=== PATIENT | male | born 1980 | race Two or more races ===

== ENCOUNTER 2019-01-22 08:46 | Inpatient (IN) | payer SELFPAY ==
[~2019-01-22] VITALS: Ht 190.5 cm; Wt 100.5 kg
[2019-01-22 09:38] LABS: Basophils # (auto) 0.1 uL; Basophils % (auto) 0.6 % (0.0-2.0); Eosinophils # (auto) 0.6 uL; Eosinophils % (auto) 4.7 % (0.0-7.0); Hematocrit 45.7 % (41.0-53.0); Hemoglobin 15.7 g/dL (13.5-17.5); Lymphocytes % (auto) 16.9 % (10.0-50.0); Mean Corpuscular Hemoglobin 31.2 pg (28.0-32.0); Mean Corpuscular Hgb Conc. 34.3 g/dL (32.0-36.0); Mean Corpuscular Volume 91.1 fL (80.0-100.0); Monocytes # (auto) 0.8 uL; Monocytes % (auto) 6.5 % (0.0-12.0); Neutrophils # (auto) 8.5 uL; Neutrophils % (auto) 71.3 % (37.0-80.0); Platelet Count (auto) 236 10^3/uL (140-450); Red Blood Cells 5.01 10^6/uL (4.5-5.90); Red Cell Distribution Width 12.7 % (11.8-14.3); White Blood Cell 11.9 10^3/uL (4.4-10.8)
[2019-01-22 09:57] LABS: Albumin 3.5 g/dL (3.4-5.0); Calcium 8.9 mg/dL (8.5-10.1); Potassium 4.5 mmol/L (3.5-5.1)
[2019-01-22 09:58] LABS: Bilirubin, Total 0.8 mg/dL (0.2-1.0); Total Protein 8.1 g/dL (6.4-8.2)
[2019-01-22 10:14] LABS: Urine Bacteria NONE SEEN /hpf (None Seen); Urine Blood 2+ /uL (Negative); Urine Mucus FEW (None Seen); Urine Specific Gravity 1.023 (1.001-1.035); Urine WBC 3 /hpf (0 - 3)
[2019-01-22] MEDS ORDERED: SODIUM CHLORIDE 0.9% 1,000 ML IV ONE ×3 (10:15→10:20)
[2019-01-22] MEDS ORDERED: cefTRIAXone 1GM/50ML D5W 50 ML IV ONE ×2 (11:45→13:15)
[2019-01-22] MEDS ORDERED: metroNIDAZOLE 500MG/100ML 100 ML IV ONE (11:45)
[2019-01-22] MEDS ORDERED: ONDANSETRON HCL 4 MG/2 ML VIAL IV PRN ×2 (13:15→17:30)
[2019-01-22] MEDS ORDERED: SODIUM CHLORIDE 0.9% 1,000 ML IV SCH (13:15)
[2019-01-22 13:32] LABS: INR 0.95 (0.9-1.15); Partial Thromboplastin Time 31.7 sec (23.64-32.05)
[2019-01-22] MEDS ORDERED: MIDAZOLAM HCL 1MG/1ML-2 ML VIAL ONE ×2 (14:03→14:25)
[2019-01-22] MEDS ORDERED: fentaNYL CITRATE 100 MCG/2 ML VL ONE ×3 (14:03→15:35)
[2019-01-22] MEDS ORDERED: ONDANSETRON HCL 4 MG/2 ML VIAL ONE ×2 (14:03→17:29)
[2019-01-22] MEDS ORDERED: PROPOFOL 10 MG/ML 20 ML IV ONE ×2 (14:03→15:06)
[2019-01-22] MEDS ORDERED: ROCURONIUM 10MG/ML 10ML VIAL IV ONE ×2 (14:03→15:31)
[2019-01-22] MEDS ORDERED: SODIUM CHLORIDE LOCK 0 ML ONE (14:03)
[2019-01-22] MEDS ORDERED: NEOSTIGMINE 1 MG/ML INJ (10mg/10ML VIAL) ONE (14:03)
[2019-01-22] MEDS ORDERED: MEPERIDINE HCL (25 MG/ML) 1ML VIAL ONE ×2 (14:03→14:25)
[2019-01-22] MEDS ORDERED: GLYCOPYRROLATE 0.2 MG/ML 1ML VIAL ONE (14:03)
[2019-01-22] MEDS ORDERED: ceFAZolin 1GM/50ML 50 ML IV ONE (14:27)
[2019-01-22] MEDS ORDERED: POVIDONE IODINE 5% TOPICAL CREAM TOP ONE (16:50)
[2019-01-22] MEDS ORDERED: METOCLOPRAMIDE HCL 5MG/ml INJ 2ml VIAL IV PRN (17:30)
[2019-01-22] MEDS ORDERED: ePHEDrine SULFATE 50 MG/ML AMP IV PRN (17:30)
[2019-01-22] MEDS ORDERED: LABETALOL HCL 5 MG/ML 4ML SYRINGE IV PRN (17:30)
[2019-01-22] MEDS ORDERED: MIDAZOLAM HCL 1MG/1ML-2 ML VIAL IV PRN (17:30)
[2019-01-22] MEDS ORDERED: MORPHINE SULFATE 4 MG/ML SYR/VIAL IV PRN ×3 (17:30)
[2019-01-22] MEDS ORDERED: KETOROLAC TROMETH 30 MG/ML 1ML VIAL IV ONE (17:30)
[2019-01-22] MEDS: HYDROmorphone HCL 2 MG/ML VL IV PRN ×4 (17:33→18:55)
[2019-01-22] MEDS ORDERED: DexAMETHasone SOD PHOS 10MG/1ML VIAL INJ IM ONE (18:00)
[2019-01-22 19:30] VITALS: BP 143/95
--- NOTE | 2019-01-22 19:30 | NUR ---
Admit to [facility] admitted to [facility] from OR via [facility]OS[facility]ITAL BED on cardiac rehabilitation program director. Connected to unit monitoring and oxygen, and weighed by [facility]. Patient oriented to ana VILLAGOMEZ RN, unit, room, bed, and unit policies regarding patient care and visiting hours. MIDLINE INCISION S/P EXPLORATORY LAP - CLEAN/DRY/INTACT, WITH MINIMAL SEROSANGUINEOUS DRAINAGE. MIDLINE MI DRAIN PATENT AND DRAINING. LEFT ANTECUBITAL IV - CLEAN/DRY/INTACT. UPDATED PATENT AND FAMILY ON PLAN OF CARE. All questions and concerns addressed, patient verbalized understanding. WILL CONTINUE TO MONITOR. Addendum: 01/23/19 at 0723 by CELINE BUSTAMANTE RN RN *MIDLINE INCISION DRESSING - CLEAN/DRY/INTACT.
[2019-01-22 20:00] VITALS: BP 136/85
[2019-01-22] MEDS: MORPHINE SULF INJ 2 MG/ML SYRINGE 1ML IV PRN (21:26)
[2019-01-22] MEDS: metroNIDAZOLE 500MG/100ML 100 ML IV SCH (22:37)
--- NOTE | 2019-01-22 22:48 | NUR ---
ROUNDS PATIENT IN BED TRYING TO SLEEP WITH NO SIGNS OR SYMPTOM OF SOB, OR DISTRESS. COMPLAINING OF ABD PAIN DUE TO S/P EXPLORATORY LAP, NO SIGNS OF ACTIVE BLEEDING. MI DRAIN PATENT AND DRAINING. REPOSITIONED FOR COMFORT. BED IN LOWEST POSITION, SIDE RAILS UP X2, CALL LIGHT WITHIN REACH, WILL CONTINUE TO MONITOR.
[2019-01-23] VITALS: BP 130/90
--- NOTE | 2019-01-23 01:12 | NUR ---
MORNING CARE PATIENT REFUSED MORNING CARE AT THIS TIME. WIPED FACE WITH WASH CLOTHS. REPOSITIONED FOR COMFORT. BED IN LOWEST POSITION, SIDE RAILS UP X2, CALL LIGHT WITHIN REACH. WILL CONTINUE TO MONITOR.
[2019-01-23] MEDS: MORPHINE SULF INJ 2 MG/ML SYRINGE 1ML IV PRN ×3 (01:22→10:07)
[2019-01-23] MEDS: D5W/SOD CHL 0.45%/KCL 20MEQ 1,000 ML IV SCH ×5 (01:35→23:45)
[2019-01-23 04:00] VITALS: BP 128/83
--- NOTE | 2019-01-23 05:25 | NUR ---
ROUNDS PATIENT IN BED SLEEPING WITH NO SIGNS OR SYMPTOMS OF SOB, OR DISTRESS. ABD PAIN DUE TO S/P EXPLORATORY LAP - 01/05, MEDICATED FOR COMFORT. REPOSITIONED FOR COMFORT. BED IN LOWEST POSITION, SIDE RAILS UP X2, CALL LIGHT WITHIN REACH. WILL CONTINUE TO MONITOR.
[2019-01-23] MEDS: metroNIDAZOLE 500MG/100ML 100 ML IV SCH ×3 (05:48→22:07)
[2019-01-23 06:13] LABS: Basophils # (auto) 0.1 uL; Basophils % (auto) 0.3 % (0.0-2.0); Eosinophils # (auto) 0 uL; Eosinophils % (auto) 0.1 % (0.0-7.0); Hematocrit 39.7 % (41.0-53.0); Hemoglobin 13.6 g/dL (13.5-17.5); Lymphocytes # (auto) 1.2 uL; Lymphocytes % (auto) 7.8 % (10.0-50.0); Mean Corpuscular Hemoglobin 31.3 pg (28.0-32.0); Mean Corpuscular Hgb Conc. 34.3 g/dL (32.0-36.0); Monocytes # (auto) 0.8 uL; Monocytes % (auto) 5.2 % (0.0-12.0); Neutrophils # (auto) 13.3 uL; Neutrophils % (auto) 86.6 % (37.0-80.0); Platelet Count (auto) 316 10^3/uL (140-450); Red Blood Cells 4.37 10^6/uL (4.5-5.90); Red Cell Distribution Width 12.6 % (11.8-14.3); White Blood Cell 15.4 10^3/uL (4.4-10.8)
[2019-01-23 06:30] LABS: Albumin 2.7 g/dL (3.4-5.0); BUN/Creatinine Ratio 5.7
[2019-01-23 06:32] LABS: Bilirubin, Total 0.5 mg/dL (0.2-1.0); Total Protein 6.4 g/dL (6.4-8.2)
--- NOTE | 2019-01-23 06:51 | NUR ---
END OF SHIFT PATIENT IN BED SLEEPING WITH NO SIGNS OR SYMPTOMS OF SOB, PAIN OR DISTRESS. CURRENTLY ON ROOM AIR, 02 SAT - 94%. REPOSITIONED FOR COMFORT. LEFT ANTECUBITAL IV - CLEAN/DRY/INTACT. MIDLINE INCISION DRESSING- CLEAN/DRY/INTACT, WITH MINIMAL SEROSANGUINEOUS DRAINAGE. MIDLINE MI DRAIN PATENT AND DRAINING. SCDS PLACED BILATERALLY. BED IN LOWEST POSITION, SIDE RAILS UP X2 ,CALL LIGHT WITHIN REACH. WILL ENDORSE CARE TO DAY SHIFT RN.
[2019-01-23 07:40] VITALS: BP 122/84
--- NOTE | 2019-01-23 08:00 | NUR ---
Opening Shift Note Assumed care of patient, awake and alert. No S/S of distress/SOB. Patient complains of post -op abdominal pain 2/10 when coughing or turning. Patient instructed and motivated on use of IS, patient able to do up to 500ml at this time. Maintained patient NPO, patient instructed. RT nare NGT to LCS draining serosanguinous, minimal amount, lower abdominal MI draining serosanguinous. Midline abdominal incision dressing with old drainage, marked, abdominal binder in place. See interventions for complete assessment. Bed locked on low position, side rails up x2, bed alarms on at all times, call card within reach, instructed on POC and to call for assist PRN, will continue to monitor for changes Q1hr and PRN.
[2019-01-23] MEDS: cefTRIAXone 1GM/50ML D5W 50 ML IV SCH (10:06)
--- NOTE | 2019-01-23 10:20 | NUR ---
Dr Osman at bedside, updated on patient's status. Patient seen and examined. No new orders at this time. Addendum: 01/23/19 at 1046 by Katya Mendenhall RN wrong patient
--- NOTE | 2019-01-23 10:45 | NUR ---
Dr Gonzáles at bedside, updated on patient's status. Patient seen and examined. Will carry out new orders.
[2019-01-23 11:40] VITALS: BP 135/83
[2019-01-23] MEDS: HYDROmorphone HCL 2 MG/ML VL IV PRN ×2 (14:04→18:53)
--- NOTE | 2019-01-23 15:16 | NUR ---
Dr Shields at bedside, updated on patient's status. Patient seen and examined. No new orders at this time.
[2019-01-23 15:40] VITALS: BP 137/76
--- NOTE | 2019-01-23 17:00 | NUR ---
Patient have been doing IS every hour up to 2000ml.
--- NOTE | 2019-01-23 19:25 | NUR ---
OPENING SHIFT RECEIVED REPORT FROM DAY SHIFT RN. ASSUMED CARE OF PATIENT. PATIENT IN BED RESTING WITH NO SIGNS OR SYMPTOMS OF SOB, OR DISTRESS. ABD PAIN LEVEL S/P EXPLORATORY LAP - 07/08. REPOSITIONED FOR COMFORT. LEFT ANTECUBITAL IV - CLEAN/DRY/INTACT. ABD DRESSING - CLEAN/DRY/INTACT, WITH OLD DRAINAGE MARKED. MI DRAIN - PATENT AND DRAINING. NGT TO THE RIGHT NARE ON LCS. UPDATED PATIENT ON PLAN OF CARE. BED IN LOWEST POSITION, SIDE RAILS UP X2, CALL LIGHT WITHIN REACH. WILL CONTINUE TO MONITOR.
[2019-01-23 20:00] VITALS: BP 129/79
[2019-01-23] MEDS: FAMOTIDINE (10MG/ML) 2ML VL IV SCH (22:07)
--- NOTE | 2019-01-23 23:50 | NUR ---
ROUNDS PATIENT IN BED SLEEPING. REPOSITIONED FOR COMFORT. BED IN LOWEST POSITION, SIDE RAILS UP X2, CALL LIGHT WITHIN REACH. WILL CONTINUE TO MONITOR.
[2019-01-24] VITALS: BP 139/80
[2019-01-24] MEDS: HYDROmorphone HCL 2 MG/ML VL IV PRN ×5 (00:41→21:31)
[2019-01-24 04:00] VITALS: BP 123/80
--- NOTE | 2019-01-24 05:42 | NUR ---
ROUNDS PATIENT IN BED SLEEPING WITH NO SIGNS OR SYMPTOMS OF SOB, PAIN OR DISTRESS. CURRENTLY ON ROOM AIR, 02 SAT - 96%. REPOSITIONED FOR COMFORT. BED IN LOWEST POSITION, SIDE RAILS UP X2, CALL LIGHT WITHIN REACH. WILL CONTINUE TO MONITOR.
[2019-01-24 05:47] LABS: Basophils # (auto) 0 uL; Basophils % (auto) 0.4 % (0.0-2.0); Eosinophils # (auto) 0.2 uL; Eosinophils % (auto) 2.2 % (0.0-7.0); Hematocrit 33.5 % (41.0-53.0); Hemoglobin 11.6 g/dL (13.5-17.5); Lymphocytes # (auto) 1.7 uL; Lymphocytes % (auto) 15.9 % (10.0-50.0); Mean Corpuscular Hemoglobin 31.4 pg (28.0-32.0); Mean Corpuscular Hgb Conc. 34.6 g/dL (32.0-36.0); Mean Corpuscular Volume 90.9 fL (80.0-100.0); Monocytes # (auto) 0.9 uL; Monocytes % (auto) 8.4 % (0.0-12.0); Neutrophils # (auto) 7.8 uL; Neutrophils % (auto) 73.1 % (37.0-80.0); Platelet Count (auto) 259 10^3/uL (140-450); Red Blood Cells 3.68 10^6/uL (4.5-5.90); Red Cell Distribution Width 12.8 % (11.8-14.3); White Blood Cell 10.7 10^3/uL (4.4-10.8)
[2019-01-24 06:12] LABS: Calcium 8.1 mg/dL (8.5-10.1); Potassium 3.9 mmol/L (3.5-5.1)
[2019-01-24 06:13] LABS: BUN/Creatinine Ratio 7.1
[2019-01-24] MEDS: metroNIDAZOLE 500MG/100ML 100 ML IV SCH ×3 (06:13→21:16)
--- NOTE | 2019-01-24 06:54 | NUR ---
END OF SHIFT PATIENT IN BED SLEEPING WITH NO SIGNS OR SYMPTOMS OF SOB, PAIN OR DISTRESS. CURRENTLY ON 2L NASAL CANNULA, 02 SAT - 98%. REPOSITIONED FOR COMFORT. LEFT AC IV - CLEAN/DRY/INTACT. BED IN LOWEST POSITION, SIDE RAILS UP X2, CALL LIGHT WITHIN REACH. WILL ENDORSE CARE TO DAY SHIFT RN.
[2019-01-24 07:40] VITALS: BP 118/75
--- NOTE | 2019-01-24 08:00 | NUR ---
Opening Shift Note Assumed care of patient, laying in bed, eyes closed, easily arousable. No S/S of distress/SOB. NGT to LCS draining serosanguinous, minimal amount, lower abdomen MI draining serosanguinous, minimal amount. See interventions for complete assessment. Bed locked on low position, side rail up x2, bed alarms on at all times, call card within reach, instructed on POC and to call for assist PRN, will continue to monitor for changes Q1hr and PRN. Jermaine at bedside.
[2019-01-24] MEDS: D5W/SOD CHL 0.45%/KCL 20MEQ 1,000 ML IV SCH ×3 (09:52→21:36)
[2019-01-24] MEDS: cefTRIAXone 1GM/50ML D5W 50 ML IV SCH (09:53)
[2019-01-24] MEDS: FAMOTIDINE (10MG/ML) 2ML VL IV SCH ×2 (09:53→21:16)
--- NOTE | 2019-01-24 11:05 | NUR ---
Dr Gonzáles at bedside, updated on patient's status. Patient seen and examined. Will carry out new orders.
[2019-01-24 11:50] VITALS: BP 133/76
[2019-01-24] MEDS: PROMETHAZINE HCL 25 MG/ML 1ML IV PRN ×2 (13:29→17:42)
--- NOTE | 2019-01-24 15:42 | NUR ---
Patient out of bed to bedside chair with Jefferson PT. Fall precautions in placed. Patient tolerating well. Patient doing IS up to 1500ml at this time.
[2019-01-24 15:50] VITALS: BP 118/72
--- NOTE | 2019-01-24 16:30 | NUR ---
Patient back to bed from bedside chair with PT, fall precautions in placed. Patient tolerated well.
--- NOTE | 2019-01-24 16:35 | NUR ---
[facility] pt transferred to floor [facility] transfered to room 251B via hospital bed on monitoring engineer . All patient medications and personal belongings transfered with patient to receiving floor. Patient care transfered to Rachel AVILA. NOTE: MI drain 120ml serosanguinous, NGT drain 20ml serosanguinous.
--- NOTE | 2019-01-24 20:00 | NUR ---
Abdominal dressing dry and intact, on abdominal binder , with J.p suction bulb with minimal amount of serous sanguinous output noted, family at bedside.
--- NOTE | 2019-01-24 20:00 | NUR ---
Opening Shift Note Assumed care of patient, awake and alert. No S/S of distress/SOB or pain. Instructed on POC and to call for assist PRN, will continue to monitor for changes Q1hr and PRN.
[2019-01-24 22:20] VITALS: BP 120/76
[2019-01-25] MEDS: HYDROmorphone HCL 2 MG/ML VL IV PRN ×6 (01:50→22:07)
[2019-01-25] MEDS: metroNIDAZOLE 500MG/100ML 100 ML IV SCH ×3 (05:00→21:55)
[2019-01-25 05:38] VITALS: BP 123/64
--- NOTE | 2019-01-25 06:11 | NUR ---
NGT output 150cc greenish , J.p bulb suction has 25 cc output serous sanguinous.
[2019-01-25] MEDS: D5W/SOD CHL 0.45%/KCL 20MEQ 1,000 ML IV SCH ×3 (06:20→18:43)
[2019-01-25 07:12] LABS: Basophils # (auto) 0.1 uL; Basophils % (auto) 0.8 % (0.0-2.0); Eosinophils # (auto) 0.3 uL; Eosinophils % (auto) 3.4 % (0.0-7.0); Hemoglobin 10.5 g/dL (13.5-17.5); Lymphocytes # (auto) 1.5 uL; Mean Corpuscular Hemoglobin 31.4 pg (28.0-32.0); Mean Corpuscular Volume 89.8 fL (80.0-100.0); Monocytes # (auto) 0.7 uL; Monocytes % (auto) 7.4 % (0.0-12.0); Neutrophils # (auto) 7.3 uL; Neutrophils % (auto) 73.4 % (37.0-80.0); Nucleated Red Blood Cells % 0.1 %; Platelet Count (auto) 257 10^3/uL (140-450); Red Blood Cells 3.35 10^6/uL (4.5-5.90); Red Cell Distribution Width 12.4 % (11.8-14.3); White Blood Cell 9.9 10^3/uL (4.4-10.8)
--- NOTE | 2019-01-25 07:25 | NUR ---
Report given to Melinda Deutsch, patient is resting no distress.
[2019-01-25 07:27] LABS: Albumin 2.4 g/dL (3.4-5.0); Calcium 7.8 mg/dL (8.5-10.1); Potassium 3.9 mmol/L (3.5-5.1)
[2019-01-25 07:29] LABS: BUN/Creatinine Ratio 8.8; Bilirubin, Total 0.4 mg/dL (0.2-1.0); Total Protein 6.2 g/dL (6.4-8.2)
--- NOTE | 2019-01-25 07:30 | NUR ---
Opening Shift Note Assuming care of patient at this time. Patient is awake and alert. Patient has pain, 8/10. Patient is resting in bed. Bed is locked and lowered with side rails up x2. Will medicate per doctor's orders. Instructed patient on the plan of care for today and to call for assistance as needed. Call light within reach.
--- NOTE | 2019-01-25 08:30 | NUR ---
at bedside at bedside at this time.
[2019-01-25 09:00] VITALS: BP 138/77
[2019-01-25] MEDS: FAMOTIDINE (10MG/ML) 2ML VL IV SCH ×2 (09:35→21:55)
[2019-01-25] MEDS: cefTRIAXone 1GM/50ML D5W 50 ML IV SCH (09:36)
[2019-01-25] MEDS ORDERED: KETOROLAC TROMETH 30 MG/ML 1ML VIAL IV PRN (11:00)
--- NOTE | 2019-01-25 12:23 | NUR ---
Nutrition Assessment Notes please see attached link for complete assessment Est. Needs BW (103 kg): 3369-9216 kcal (23-25 kcal/kgBW), 103-113 gms pro (1.0-1.1 gms/kgBW). Will continue to monitor pertinent labs and reassess nutrient need prn Addendum: 01/25/19 at [address] Amended: Links added.
[2019-01-25 13:00] VITALS: BP 135/83
--- NOTE | 2019-01-25 16:15 | NUR ---
Late note Accessed pt for qualification for [facility]. Pt's income is over the qualification for [employer]. The pt is and his spouse makes over the qualifying account also. The business office will have to follow up.
[2019-01-25 17:00] VITALS: BP 116/68
[2019-01-25] MEDS: PROMETHAZINE HCL 25 MG/ML 1ML IV PRN ×2 (17:26→22:07)
--- NOTE | 2019-01-25 17:48 | NUR ---
assessment Patient is a 38 year old male who is alert and oriented. Prior to admission patient lived home with his and functioned independently. Per patient he will return home with his Sharif on discharge. Patient informed me he has provided Kahlil with some documents and Sharif has the rest at bedside now. Patient has good family support. Patient informed me he may need a fww on discharge. I informed patient he will be assessed by physical therapy and his post discharge needs to be determined. patient verbalized understanding and agreed to discharge plan home. Addendum: 01/25/19 at 1751 by Dennise LAST Amended: Links added.
--- NOTE | 2019-01-25 19:15 | NUR ---
Closing Shift Note Patient is resting in bed. Father at bedside. Patient states that his pain is now 4/10. No distress noted. Report given. Will endorse care to the night auditor RN. Addendum: 01/25/19 at 1921 by ELIZABET RIOS RN RN Patient is wearing abdominal binder. Incisions are clean, dry, and intact. No new drainage noted on this shift. NG tube continuous to drain dark green fluid and MI drain has some serosanguineous drainage.
--- NOTE | 2019-01-25 19:45 | NUR ---
Opening Shift Note Assumed care of patient, awake and alert. Family at bedside. No S/S of distress/SOB or pain. Bed in lowest locked position, side rails up x2, call light within reach. Abdominal binder in place, drainage noted to have been circled previously, no new drainage at this time. MI drain to bulb suction, approximately half full with serosanguineous drainage at this time. NG tube to low continuous suction as ordered, draining dark green fluid at this time. Patient educated on use of incentive spirometer, patient verbalized understanding. Instructed on POC and to call for assist PRN, will continue to monitor for changes Q1hr and PRN.
[2019-01-25 21:55] VITALS: BP 146/80
--- NOTE | 2019-01-25 22:00 | NUR ---
Temperature Patient's temperature 99.6, cooling measures applied. Room also warm despite thermostat being set to "cool, no air felt on patient's side of the room maintenance paged. Will continue care.
--- NOTE | 2019-01-25 22:15 | NUR ---
Maintenance at bedside, room cooling, patient reporting relief. Will continue care.
[2019-01-26] MEDS: HYDROmorphone HCL 2 MG/ML VL IV PRN ×4 (02:58→22:42)
[2019-01-26] MEDS: PROMETHAZINE HCL 25 MG/ML 1ML IV PRN ×4 (02:59→18:58)
[2019-01-26] MEDS: D5W/SOD CHL 0.45%/KCL 20MEQ 1,000 ML IV SCH ×3 (04:35→21:15)
[2019-01-26 05:23] VITALS: BP 147/77
[2019-01-26] MEDS: metroNIDAZOLE 500MG/100ML 100 ML IV SCH ×3 (06:13→22:42)
--- NOTE | 2019-01-26 06:53 | NUR ---
Closing Note Patient lying in bed, eyes closed, respirations even and unlabored, appears asleep. No s/s of distress. Will endorse care to dayshift MARGARITA. Addendum: 01/26/19 at 0733 by BLAINE MAY RN RN ADDITION: Patient had 150 ml of green drainage from NG tube and 50 ml of serosanguineous drainage out from MI drain at time of note.
--- NOTE | 2019-01-26 07:30 | NUR ---
Opening Shift Note Assumed care of patient, awake and alert. No S/S of distress/SOB or pain, NG tube to LCS. Instructed on POC and to call for assist PRN, will continue to monitor for changes Q1hr and PRN. Bed in low and locked position, rails up x2, no-slip socks on. MI in place serosanguineous fluid in bulb.
[2019-01-26 09:00] VITALS: BP 121/79
--- NOTE | 2019-01-26 09:00 | NUR ---
PASSING GAS REPORTED TO HAVE PASSED GAS THREE TIMES AFTER AMBULATING THE HALLS, WILL NOTIFY
[2019-01-26] MEDS: FAMOTIDINE (10MG/ML) 2ML VL IV SCH ×2 (09:42→22:41)
[2019-01-26] MEDS: cefTRIAXone 1GM/50ML D5W 50 ML IV SCH (09:42)
--- NOTE | 2019-01-26 10:50 | NUR ---
DR REBOLLEDO ORDERS SINCE PATIENT PASSED GAS, REMOVE NG, CLEAR LIQUID DIET, DRESSING TO BE OPEN TO AIR. NOTIFIED ON MI DRAINAGE AND STATED IT WILL BE LEFT IN AT THIS TIME. ORDERS CARRIED OUT, PATIENT TOLERATED IT WELL. INFORMED TO CALL FOR NAUSEA OR URGE TO HAVE A BOWEL MOVEMENT, PATIENT VERBALIZES UNDERSTANDING.
--- NOTE | 2019-01-26 11:15 | NUR ---
DR YEPEZ AT BEDSIDE ENCOURAGED PATIENT TO CONTINUE TO AMBULATE, NEW ORDERS ADDED.
[2019-01-26 13:00] VITALS: BP 134/82
[2019-01-26 17:00] VITALS: BP 114/75
--- NOTE | 2019-01-26 19:35 | NUR ---
Opening Shift Note Assumed care of patient, awake and alert. Family at bedside. No S/S of distress/SOB or pain. Bed in lowest locked position, side rails up x2, call light within reach. Abdominal binder in place, site clean, dry and intact. MI drain to bulb suction. Patient again educated on use of incentive spirometer, patient again verbalized understanding. Instructed on POC and to call for assist PRN, will continue to monitor for changes Q1hr and PRN.
[2019-01-26 22:00] VITALS: BP 122/61
[2019-01-27] MEDS: HYDROmorphone HCL 2 MG/ML VL IV PRN ×4 (03:15→21:04)
[2019-01-27] MEDS: PROMETHAZINE HCL 25 MG/ML 1ML IV PRN ×5 (03:15→23:13)
[2019-01-27 05:43] VITALS: BP 121/75
[2019-01-27] MEDS: metroNIDAZOLE 500MG/100ML 100 ML IV SCH ×3 (06:04→21:04)
--- NOTE | 2019-01-27 06:20 | NUR ---
Assisted patient to restroom, on return to bed patient brought up 10 ml of clear spit into emesis bag. Patient suctioned as needed. No s/s of distress. Will continue to monitor patient.
[2019-01-27 06:28] LABS: Basophils # (auto) 0.1 uL; Basophils % (auto) 0.7 % (0.0-2.0); Eosinophils # (auto) 0.4 uL; Eosinophils % (auto) 3.8 % (0.0-7.0); Hematocrit 30.8 % (41.0-53.0); Lymphocytes # (auto) 1.4 uL; Lymphocytes % (auto) 13.3 % (10.0-50.0); Mean Corpuscular Hemoglobin 31.7 pg (28.0-32.0); Mean Corpuscular Hgb Conc. 35.5 g/dL (32.0-36.0); Mean Corpuscular Volume 89.2 fL (80.0-100.0); Monocytes # (auto) 0.8 uL; Monocytes % (auto) 7.4 % (0.0-12.0); Neutrophils # (auto) 7.8 uL; Neutrophils % (auto) 74.8 % (37.0-80.0); Nucleated Red Blood Cells % 0.1 %; Platelet Count (auto) 378 10^3/uL (140-450); Red Blood Cells 3.46 10^6/uL (4.5-5.90); Red Cell Distribution Width 12.8 % (11.8-14.3); White Blood Cell 10.4 10^3/uL (4.4-10.8)
[2019-01-27 06:56] LABS: Calcium 8.2 mg/dL (8.5-10.1)
--- NOTE | 2019-01-27 07:02 | NUR ---
Closing Note Patient lying in bed, eyes closed, respirations even and unlabored, appears asleep. No s/s of distress. 75 ml of sanguineous drainage out from MI drain. Will endorse care to dayswillian AVILA. Addendum: 01/27/19 at 0725 by BLAINE MAY RN RN CORRECTION: 115 ml of sanguinous drainage emptied from MI drain.
--- NOTE | 2019-01-27 07:30 | NUR ---
Opening Shift Note Assumed care of patient, awake and alert. No S/S of distress/SOB or pain. Instructed on POC and to call for assist PRN, will continue to monitor for changes Q1hr and PRN. Bed in low and locked position, rails up x2, no-slip socks on.
[2019-01-27 09:00] VITALS: BP 124/83
[2019-01-27] MEDS: cefTRIAXone 1GM/50ML D5W 50 ML IV SCH (09:20)
[2019-01-27] MEDS: FAMOTIDINE (10MG/ML) 2ML VL IV SCH ×2 (09:20→21:03)
--- NOTE | 2019-01-27 09:30 | NUR ---
INCREASED MI OUTPUT ON ASSESSMENT, THE MI DRAIN WAS NOT COMPRESSED TO SUCTION, DRAINED FULL BULB AND COMPRESSED, BULB FILLED AGAIN WITH DARK RED BLOOD. MEASURED TOTAL 125ML OUTPUT. COMPRESSED BULB TO SUCTION AGAIN AND DRAINAGE SLOWED. PATIENT DOES NOT COMPLAIN OF DIZZINESS, WEAKNESS. PAGE TO DR REBOLLEDO TO NOTIFY ON INCREASED DRAINAGE, AWAITING CALL BACK.
[2019-01-27 12:57] VITALS: BP 116/84
[2019-01-27] MEDS ORDERED: GASTROGRAFIN 120 ML SOL ONE (13:17)
--- NOTE | 2019-01-27 13:50 | NUR ---
PATIENT OFF UNIT FOR PROCEDURE UPPER GI SERIES
--- NOTE | 2019-01-27 14:50 | NUR ---
PATIENT BACK ON UNIT HAD A BM PATIENT STATED HE HAD A MODERATE SIZED BM DOWNSTAIRS CONSISTING OF YELLOW BROWN PIECES AND SOME MUCUS. WILL NOTIFY
--- NOTE | 2019-01-27 15:00 | NUR ---
DR SELF AT BEDSIDE NOTIFIED OF INCREASED MI DRAINAGE, DR SELF SPOKE TO DR REBOLLEDO AND NEW ORDERS ADDED FOR Q6 H&H X3, NO OTHER ORDERS ADDED. WILL CONTINUE TO MONITOR PATIENT.
--- NOTE | 2019-01-27 15:30 | NUR ---
IV removal and IV insertion IV DC'd to left ac with clean sterile technique, catheter fully intact. Pressure dressing applied to site. Patient tolerated well. IV access obtained, via clean sterile technique by inserting 20 gauge catheter at left upper arm after 2 attempts. IV secured properly. No trauma to site. Patient tolerated well.
[2019-01-27] MEDS: D5W/SOD CHL 0.45%/KCL 20MEQ 1,000 ML IV SCH ×3 (15:46→19:15)
[2019-01-27 17:00] VITALS: BP 125/85
[2019-01-27 17:00] LABS: Hematocrit 34.7 % (41.0-53.0); Hemoglobin 11.9 g/dL (13.5-17.5)
--- NOTE | 2019-01-27 17:51 | NUR ---
MORE MI DRAINAGE DRAIN EMPTIED TWICE, PATIENT POSITION CHANGED TO RIGHT LATERAL AND A TOTAL OF 200ML OF DARK SANGUINOUS DRAINAGE QUICKLY FILLED MI BULB, ON THIRD COMPRESSION, DRAINAGE SLOWED BUT STILL DRAINING. PAGE TO DR REBOLLEDO REGARDING INCREASED DRAINAGE AMOUNT.
--- NOTE | 2019-01-27 19:03 | NUR ---
PATIENT EMESIS PATIENT VOMITED 900CC OF DARK GREEN BILE COLORED EMESIS, MEDICATED WITH PHENERGAN. INSTRUCTED THE PATIENT TO REMAIN NPO AT THIS TIME AND PATIENT VERBALIZES UNDERSTANDING. PAGE SENT OUT TO DR REBOLLEDO TO NOTIFY.
--- NOTE | 2019-01-27 19:09 | NUR ---
DR REBOLLEDO CALL BACK PLACE NG TUBE, CONNECT TO LCS, NPO AND INCREASE IV FLUIDS TO 120ML/H. WILL ENDORSE TO NOC SHIFT RN.
--- NOTE | 2019-01-27 19:30 | NUR ---
Opening Shift Note Assumed care of patient, awake and alert. Family at bedside. No S/S of distress/SOB or pain. Bed in lowest locked position, side rails up x2, call light within reach. Abdominal binder in place, site clean, dry and intact. MI drain to bulb suction, 10 ml of sanguinous drainage emptied and bulb compressed again to suction. Patient again educated on use of incentive spirometer, patient again verbalized understanding. Instructed on POC and to call for assist PRN, will continue to monitor for changes Q1hr and PRN.
--- NOTE | 2019-01-27 20:23 | NUR ---
Nasogastric tube insertion Patient educated on need for NG tube. All questions addressed. NGT inserted per MD Shields order by secondary RN Sakina. Placement verified by aspiration of stomach contents and auscultation. Chest x-ray ordered per protocol to verify placement. Will continue care.
[2019-01-27 22:01] VITALS: BP 127/71
--- NOTE | 2019-01-27 22:25 | NUR ---
Chest Xray Radiology at bedside for chest x-ray.
--- NOTE | 2019-01-27 22:40 | NUR ---
Radiology Spoke with Iris from the radiology department regarding previously ingested contrast dye for small bowel series and ordered KUB. Technicians concerned that contrast dye for imaging would be removed when the NG tube is connected to the ordered low continuous suction. Informed technicians that patient had previously vomited a large amount earlier in the evening. Per Dorian, ok to connect patient to suction when placement confirmed as most or all of the contrast dye likely now removed from patient. Will continue to monitor.
--- NOTE | 2019-01-28 00:40 | NUR ---
NG Tube advanced Per results of chest x-ray, NG tube currently at 50 cm in right nare. Advanced tube to 54 cm, patient tolerated well. Will page Dr. Shields regarding repeat chest x-ray to confirm placement. Will continue care.
[2019-01-28 00:58] LABS: Hematocrit 33.6 % (41.0-53.0); Hemoglobin 11.7 g/dL (13.5-17.5)
--- NOTE | 2019-01-28 01:00 | NUR ---
Emesis and NG Tube Patient vomited approximately 100 ml of dark green bile over gown and sheets. Patient cleaned and new linens provided. Phenergan not due at this time, will medicate as ordered. Patient reporting discomfort from NG tube, tube retracted one centimeter to 53 cm. Patient reporting relief. No s/s of distress, will continue to monitor.
[2019-01-28] MEDS: HYDROmorphone HCL 2 MG/ML VL IV PRN ×5 (01:30→21:16)
--- NOTE | 2019-01-28 03:00 | NUR ---
NG Tube to suction Spoke with charge nurse Bia RN, per Bia, NG tube already in stomach via chest x-ray, confirmed with auscultation and aspiration of stomach juices. Patient ok to connect to suction. Patient connected to low continuous suction as ordered, 100 ml of green fluid removed from NG tube. Patient tolerating well. No s/s of distress. Will continue to monitor.
[2019-01-28] MEDS: D5W/SOD CHL 0.45%/KCL 20MEQ 1,000 ML IV SCH ×3 (03:39→19:51)
[2019-01-28 05:36] LABS: Hematocrit 33.6 % (41.0-53.0); Hemoglobin 11.7 g/dL (13.5-17.5)
[2019-01-28 05:52] VITALS: BP 140/84
[2019-01-28] MEDS: PROMETHAZINE HCL 25 MG/ML 1ML IV PRN ×4 (05:56→21:16)
[2019-01-28] MEDS: metroNIDAZOLE 500MG/100ML 100 ML IV SCH ×3 (06:08→21:17)
--- NOTE | 2019-01-28 07:05 | NUR ---
Closing Note Patient lying in bed, eyes closed, respirations even and unlabored, appears asleep. Patient awakens to name and touch. Patient had no further drainage from NG tube. 70 ml of sanguineous drainage out from MI drain total for shift. No s/s of distress. Will endorse care to dayshift RN.
--- NOTE | 2019-01-28 07:30 | NUR ---
Opening shift Note Report received from NOC RN. Both RNs rounded on patient, patient observed resting in bed without S/S of distress. Discussed POC with patient who verbalized understanding. Abdominal dressing and MI drain visualized without signs of bleeding or current drainage. Abdominal binder replaced on patient. NGT noted on LCS with minimal bile colored drainage noted in canister. Patient's significant other at bedside and both verbalize understanding to call if needing assistance. technology engineer at bedside to perform KUB.
[2019-01-28 09:00] VITALS: BP 132/86
[2019-01-28] MEDS: cefTRIAXone 1GM/50ML D5W 50 ML IV SCH (09:48)
[2019-01-28] MEDS: FAMOTIDINE (10MG/ML) 2ML VL IV SCH ×2 (09:48→21:16)
--- NOTE | 2019-01-28 10:55 | NUR ---
at bedside Dr. Dupree at bedside discussed KUB results with patient and family. Reported that they will continue NGT, NPO, and IV fluids for now. Patient and family verbalized understanding. Patient currently up ambulating in halls without S/S of distress.
[2019-01-28 13:00] VITALS: BP 118/80
--- NOTE | 2019-01-28 16:12 | NUR ---
Gualberto output Gualberto drain emptied with 50cc sanguineous blood out. Addendum: 01/28/19 at 1614 by UMER HURST RN RN Amended: Links added.
[2019-01-28 17:00] VITALS: BP 119/68
--- NOTE | 2019-01-28 19:10 | NUR ---
Opening Shift Note Report received from day shift RN. Assumed care of patient, awake and alert x4. No S/S of distress/SOB noted. Patient complained of pain to the abdominal incision area. Will medicate patient as ordered. Abdominal binder in place. Midline abdominal incision dressing, dry and intact. Previous drainage noted and circled. No new drainage noted. MI drain with sanguinous fluid draining. NGT connected to LCS with green fluid draining. Family at bedside. Instructed on POC and to call for assist PRN, will continue to monitor for changes Q1hr and PRN.
[2019-01-28 22:00] VITALS: BP 117/69
[2019-01-29] MEDS: HYDROmorphone HCL 2 MG/ML VL IV PRN ×5 (01:30→21:23)
[2019-01-29] MEDS: PROMETHAZINE HCL 25 MG/ML 1ML IV PRN ×3 (04:54→21:23)
[2019-01-29] MEDS: D5W/SOD CHL 0.45%/KCL 20MEQ 1,000 ML IV SCH ×2 (04:54→12:04)
[2019-01-29 05:00] VITALS: BP 119/75
[2019-01-29 05:48] LABS: Basophils # (auto) 0.1 uL; Basophils % (auto) 0.8 % (0.0-2.0); Eosinophils # (auto) 0.6 uL; Eosinophils % (auto) 6.3 % (0.0-7.0); Hematocrit 30.1 % (41.0-53.0); Hemoglobin 10.5 g/dL (13.5-17.5); Lymphocytes # (auto) 1.4 uL; Lymphocytes % (auto) 15.2 % (10.0-50.0); Mean Corpuscular Hemoglobin 31.4 pg (28.0-32.0); Mean Corpuscular Hgb Conc. 34.9 g/dL (32.0-36.0); Mean Corpuscular Volume 89.9 fL (80.0-100.0); Monocytes # (auto) 0.9 uL; Monocytes % (auto) 9.8 % (0.0-12.0); Neutrophils # (auto) 6.1 uL; Neutrophils % (auto) 67.9 % (37.0-80.0); Platelet Count (auto) 358 10^3/uL (140-450); Red Blood Cells 3.35 10^6/uL (4.5-5.90); Red Cell Distribution Width 12.9 % (11.8-14.3)
[2019-01-29] MEDS: metroNIDAZOLE 500MG/100ML 100 ML IV SCH ×3 (05:48→21:22)
[2019-01-29 06:03] LABS: Potassium 4.1 mmol/L (3.5-5.1)
[2019-01-29 06:07] LABS: Albumin 2.4 g/dL (3.4-5.0); BUN/Creatinine Ratio 12.5; Calcium 7.6 mg/dL (8.5-10.1)
[2019-01-29 06:22] LABS: Bilirubin, Total 0.9 mg/dL (0.2-1.0); Total Protein 5.7 g/dL (6.4-8.2)
--- NOTE | 2019-01-29 06:30 | NUR ---
MI OUTPUT REMOVED 30 MLS OF SANGUINOUS FLUID FROM MI DRAIN.
--- NOTE | 2019-01-29 08:00 | NUR ---
Opening Shift Note Assumed care of patient, awake and alert. No S/S of distress/SOB or pain. Patient is anxious to get the NG tube removed and stated he passed gas and wants to know if he can have ice chips or anything. He was informed that it is up to the doctor. Instructed on POC and to call for assist PRN, will continue to monitor for changes Q1hr and PRN.
[2019-01-29 09:00] VITALS: BP 126/76
[2019-01-29] MEDS: cefTRIAXone 1GM/50ML D5W 50 ML IV SCH (09:00)
--- NOTE | 2019-01-29 09:00 | NUR ---
Linen change/cleaned up All bedding was changed. Patient was provided with a clean gown, body wash, toothbrush, toothpaste, etc and got cleaned up in the bathroom at the sink with family assist. Patient also walked in the hallways around the hospital this morning with family. Steady gait, no complaints.
--- NOTE | 2019-01-29 09:15 | NUR ---
BM/FLATUS THIS AM PATIENT HAS BEEN PASSING GAS. A LOT OF GAS REPORTED BY PATIENT AND FAMILY AT BEDSIDE. PATIENT ALSO HAD A BM WHICH WAS SEEN BY THIS NURSE. IT WAS A LOOSE BM. MINIMAL DRAINAGE AT THIS POINT THIS MORNING FROM NG TUBE AND MI DRAIN.
[2019-01-29] MEDS: FAMOTIDINE (10MG/ML) 2ML VL IV SCH ×2 (10:06→21:22)
--- NOTE | 2019-01-29 11:15 | NUR ---
NG REMOVAL CONTACTED DR. REBOLLEDO AND NOTIFIED HIM OF PATIENT HAVING A BM AND PASSING FLATUS. ALSO NOT MUCH OUTPUT FROM NG TUBE OR MI DRAIN AT THIS TIME. ORDERED TO REMOVE NG TUBE AND CHANGE DIET TO CLEAR LIQUID. NG TUBE WAS JUST REMOVED WITH NO PROBLEMS. PROVIDED PATIENT WITH ICE CHIPS AND STRONGLY ENCOURAGED HIM TO TAKE IT SLOW WITH THE NEW DIET TO AVOID PAIN OR EMESIS. HE AGREED AND VERBALIZED UNDERSTANDING. FAMILY AT BEDSIDE.
[2019-01-29 13:00] VITALS: BP 129/74
--- NOTE | 2019-01-29 13:15 | NUR ---
TOLERATING DIET PATIENT IS TOLERATING CLEAR LIQUID DIET WELL.
[2019-01-29 17:00] VITALS: BP 114/61
--- NOTE | 2019-01-29 18:15 | NUR ---
MI DRAIN EMPTIED MI DRAIN. ONLY 12 ML DARK BROWNISH COLORED OUTPUT.
--- NOTE | 2019-01-29 18:16 | NUR ---
ABD DRESSING NO NEW DRAINAGE TO DRESSINGS OR ABDOMINAL BINDER.
--- NOTE | 2019-01-29 19:34 | NUR ---
Opening Shift Note Report received from day shift RN. Assumed care of patient. Patient awake walking the hallways with family and alert x4. No S/S of distress/SOB noted. Patient complained of pain to the abdominal incision area. Will medicate patient as ordered. Abdominal binder in place. Midline abdominal incision dressing, dry and intact. Previous drainage noted and circled. No new drainage noted. MI drain with minimal sanguinous fluid draining. Instructed on POC and to call for assist PRN, will continue to monitor for changes Q1hr and PRN.
[2019-01-29 22:00] VITALS: BP 124/83
[2019-01-30] MEDS: HYDROcodone-ACET 5/325MG TAB PO PRN (01:07)
[2019-01-30] MEDS: D5W/SOD CHL 0.45%/KCL 20MEQ 1,000 ML IV SCH ×4 (01:39→20:51)
[2019-01-30] MEDS: metroNIDAZOLE 500MG/100ML 100 ML IV SCH (05:23)
[2019-01-30] MEDS: HYDROmorphone HCL 2 MG/ML VL IV PRN ×4 (05:24→23:05)
[2019-01-30 06:04] VITALS: BP 119/63
--- NOTE | 2019-01-30 08:00 | NUR ---
Opening Shift Note Assumed care of patient, awake and alert. No S/S of distress/SOB, 4/10 abdominal pain from post op surgery, abdominal binder reapplied. With MI drain intact draining to serosanguinous output in minimal amount. Significant other at bedside. Instructed on POC and to call for assist PRN, will continue to monitor for changes Q1hr and PRN.
[2019-01-30 09:00] VITALS: BP 141/60
[2019-01-30] MEDS: cefTRIAXone 1GM/50ML D5W 50 ML IV SCH (09:43)
[2019-01-30] MEDS: FAMOTIDINE (10MG/ML) 2ML VL IV SCH (09:43)
--- NOTE | 2019-01-30 12:29 | NUR ---
Nutrition Follow-up Notes Wt.: 100.5 kg Pt`s sleeping with no family by beside. per records pt s/p hemicolectomy, no distress noted per nursing. pt is now advanced to [facility] soft diet with inadequate PO of < 505 x 2 per RN doc. pt was on CLD this am. Est. Needs BW (103 kg): 1396-9844 kcal (23-25 kcal/kgBW), 103-113 gms pro (1.0-1.1 gms/kgBW). Will continue to monitor pertinent labs and reassess nutrient need prn Labs: GLU 113 H, ALB 2.4 L, CA 7.6 L. Skin: Calvin scale 22, low risk incision ta site of sx per RN doc GI: Pt had 1 BM today per community services manager. PES: Altered nutrition related lab values r/t acute/chronic medical condition aeb hyperglycemia, mod hypoalb, hypocalcemia Will continue to monitor PO intake, skin status, pertinent labs and weight trend. F/u in 3-5 days. Rec.: 1.) consider ensure Enlive 1 carton tid if PO is low.2) Continue current plan of care.
[2019-01-30 13:00] VITALS: BP 125/73
[2019-01-30] MEDS: metroNIDAZOLE 500 MG TAB PO SCH ×2 (13:57→21:19)
[2019-01-30 17:00] VITALS: BP 143/71
--- NOTE | 2019-01-30 19:45 | NUR ---
assumed care, pt. awake, sitting and just finished his dinner, no c/o pain, no sob.
[2019-01-30] MEDS: FAMOTIDINE 20 MG TAB PO SCH (21:20)
[2019-01-30 22:00] VITALS: BP 120/74
--- NOTE | 2019-01-30 23:40 | NUR ---
MS admit from ER CAROLINE GLOVER admitted to tele/MS after SBAR received. Patient oriented to Shira Mirza, primary RN, unit, room, bed, and unit policies regarding patient care and visiting hours. Patient weighed by bedscale and encouraged to call if they need something. All questions and concerns addressed, patient verbalized understanding. Note:
[2019-01-31] MEDS: metroNIDAZOLE 500 MG TAB PO SCH ×2 (05:35→13:30)
[2019-01-31] MEDS: D5W/SOD CHL 0.45%/KCL 20MEQ 1,000 ML IV SCH (05:39)
[2019-01-31 05:45] VITALS: BP 111/65
[2019-01-31] MEDS: HYDROcodone-ACET 5/325MG TAB PO PRN (06:07)
--- NOTE | 2019-01-31 08:00 | NUR ---
RECEIVED PATIENT ALERT AND ORIENTED, NOT IN DISTRESS, CLEAR LS IN BILATERAL LUNG LOBS, RR=18, SAT=98%, DENIED SOB AND CHEST PAIN, MID ABDOMINAL SURGICAL SITE COVERED WITH DRY AND INTACT DRESSING, MI IN PLACE AND PATENT DRAINING VERY SMALL SEROSANGUINEOUS DRAIN, ABDOMEN SOFT WITH ACTIVE BS IN FOUR QUADRANTS, ABDOMINAL BINDER ON, TOLERATED WELL, LAST BM=THIS MORNING REPORTED, RESTING ON BED, WILL CONTINUE MONITORING.
[2019-01-31 09:00] VITALS: BP 120/72
[2019-01-31] MEDS: FAMOTIDINE 20 MG TAB PO SCH (09:20)
[2019-01-31] MEDS: cefTRIAXone 1GM/50ML D5W 50 ML IV SCH (09:20)
--- NOTE | 2019-01-31 11:30 | NUR ---
AMBULATED AROUND THE UNIT X4, TOLERATED WELL, PENDING D/C, DR. REBOLLEDO WAS CALLED FOR MI DRAIN FOLLOW UP AND LEFT A MASSAGE, WAITING FOR CALL BACK, WILL CONTINUE MONITORING.
[2019-01-31 12:27] VITALS: BP 111/65
[2019-01-31 13:00] VITALS: BP 142/84
[2019-01-31] MEDS: PROMETHAZINE HCL 25 MG/ML 1ML IV PRN (13:05)
[2019-01-31] MEDS: HYDROmorphone HCL 2 MG/ML VL IV PRN (13:05)
--- NOTE | 2019-01-31 13:30 | NUR ---
MI DRAIN REMOVED BY ANA, TOLERATED WELL, PROSCRIPTIONS PICKED UP BY [facility] AND PENDING.
--- NOTE | 2019-01-31 14:44 | NUR ---
D/C INSTRUCTIONS AND PRESCRIPTION EDUCATION PROVIDED, WILL BOOK EDITOR PRESCRIPTIONS MEDICATIONS FROM [facility] REPORTED, FOLLOW UP ARRANGEMENT WITH DR. REBOLLEDO WAS DONE, URGENT CARE INFORMATION AND COUPON PROVIDED, D/C IV SITE TOLERATED WELL, TOLERATED WELL, NOT IN DISTRESS AND DENIED PAIN, VS T=97.8 RR=18 SAT=98% P=88 GK=802/74, D/C ON WC ACCOMPANIED BY FAMILY AND LEFT NOTHING BEHIND.
== END 2019-01-31 14:30 | disposition home or self-care (01) | DRG 330 ==
LOC: ER 08:49 → OVERFLOW 08:50 → DOU IN ICU 19:30 → TELE-EAST 01-24 16:56 → EAST 01-25 11:36
PROVIDERS: ADMIT Internal Medicine; ATTEND Internal Medicine
PROC: 0DTF0ZZ Resection of Right Large Intestine, Open Approach (ICD-10-PCS; 2019-01-22)
PROC: 0WJG4ZZ Inspection of Peritoneal Cavity, Percutaneous Endoscopic Approach (ICD-10-PCS; 2019-01-22)
PROC: 0DTJ0ZZ Resection of Appendix, Open Approach (ICD-10-PCS; principal; 2019-01-22 14:35)
DX: K35.33 Acute appendicitis with perforation, localized peritonitis, and gangrene, with abscess (principal); N30.01 Acute cystitis with hematuria; E66.9 Obesity, unspecified; F12.90 Cannabis use, unspecified, uncomplicated; K59.00 Constipation, unspecified; K63.9 Disease of intestine, unspecified; Z83.3 Family history of diabetes mellitus; Z90.49 Acquired absence of other specified parts of digestive tract; Z68.27 Body mass index [BMI] 27.0-27.9, adult; Z79.899 Other long term (current) drug therapy; Z53.31 Laparoscopic surgical procedure converted to open procedure
CPT/HCPCS: 36415; 71045; 74018; 74176; 74250; 76705; 80048; 80053; 81001; 83605; 83690; 85014; 85018; 85025; 85610; 85730; 86850; 86900; 86901; 87040; 87081; 93005; 97163; G0378; J0690; J0696; J1885; J2250; J2405; J2704; J3490

== ENCOUNTER 2020-10-03 06:46 | Emergency (ER) | payer MEDICAID ==
[~2020-10-03] VITALS: Ht 190.5 cm; Wt 93.4 kg
[2020-10-03 06:47] VITALS: BP 117/80
== END 2020-10-03 08:29 | disposition home or self-care (01) ==
LOC: ER 06:46
DX: S46.912A Strain of unspecified muscle, fascia and tendon at shoulder and upper arm level, left arm, initial encounter (principal); S80.12XA Contusion of left lower leg, initial encounter; V43.52XA Car driver injured in collision with other type car in traffic accident, initial encounter; Y93.89 Activity, other specified; Y92.410 Unspecified street and highway as the place of occurrence of the external cause; Y99.8 Other external cause status

== ENCOUNTER 2022-02-14 09:57 | Emergency (ER) | payer MEDICAID ==
[~2022-02-14] VITALS: Ht 190.5 cm; Wt 95.5 kg
[2022-02-14] MEDS ORDERED: PRED20TA2 PO (12:08)
[2022-02-14 12:21] VITALS: BP 138/82
== END 2022-02-14 12:22 | disposition home or self-care (01) ==
LOC: ER 09:57
DX: J06.9 Acute upper respiratory infection, unspecified (principal); B97.89 Other viral agents as the cause of diseases classified elsewhere; Z20.822 Contact with and (suspected) exposure to COVID-19
CPT/HCPCS: 36415; 71045

== ENCOUNTER 2022-02-20 12:12 | Emergency (ER) | payer MEDICAID ==
[~2022-02-20] VITALS: Ht 190.5 cm; Wt 100.3 kg
[~2022-02-20 12:12] MED LIST: PRED20TA2 PO
[2022-02-20 13:10] VITALS: BP 118/91
[2022-02-20] MEDS ORDERED: PRED20TA2 PO (13:28)
[2022-02-20] MEDS ORDERED: AZITTAB PO (13:28)
[2022-02-20] MEDS ORDERED: ACET-1158 PO (13:28)
== END 2022-02-20 14:46 | disposition home or self-care (01) ==
LOC: ER 12:12
DX: J06.9 Acute upper respiratory infection, unspecified (principal); F12.10 Cannabis abuse, uncomplicated; Z20.822 Contact with and (suspected) exposure to COVID-19
CPT/HCPCS: 36415; 71045